=== PATIENT | female | born 1995 | race Caucasian/White ===

== ENCOUNTER → 2020-05-02 | Outpatient (CLI) | payer OTHER ==
[~2020-05-02] MED LIST: PRENATAL TABLE1 EAC1 PO
== END ==
LOC: CATH 10:00
DX: R55 Syncope and collapse (principal)

== ENCOUNTER → 2020-05-16 | Outpatient (CLI) | payer OTHER | LOC: HEART 5 10:00 | DX: R55 Syncope and collapse (principal); R00.2 Palpitations; I34.1 Nonrheumatic mitral (valve) prolapse | CPT/HCPCS: 93306 ==

== ENCOUNTER 2021-02-13 17:13 | Emergency (ER) | payer OTHER ==
[2021-02-13 18:51] LABS: HEMOGLOBIN 14.2 gm/dl (12.3-15.3); RED BLOOD COUNT 4.67 M/UL (4.00-5.10); WHITE BLOOD COUNT 4.4 K/UL (4.5-11.0)
[2021-02-13 19:15] LABS: BUN/CREATININE RATIO 15 (0-10)
[2021-02-13] MEDS ORDERED: ZOFRAN 4 MG TAB4 MG PO (21:27)
== END 2021-02-13 22:21 | disposition home or self-care (01) ==
LOC: ER1 17:13
PROVIDERS: Physician Assistant
DX: R42 Dizziness and giddiness (principal)
CPT/HCPCS: 80053; 81001; 83735; 84703; 85025; 96374; 99284; J2405